=== PATIENT | male | born 1970 | race African-American/Black ===

== ENCOUNTER 2016-11-08 17:50 | Emergency (ER) | payer OTHER ==
[2016-11-08 17:58] VITALS: BP 118/87
[2016-11-08] MEDS ORDERED: IMOVAX RABIES VACCINE IM ONE (18:04)
[2016-11-08] MEDS ORDERED: HYPERRAB S-D VIAL IM ONE (18:04)
[2016-11-08] MEDS ORDERED: NORCO-10 PO ONE (18:05)
--- NOTE | 2016-11-08 18:05 | PROVIDER DOCUMENTATION ---
HPI-Rash/Wound/ReCheck - General Source: patient - History of Present Illness-Dermatology Location: reports: hands (L hand, first hand space) Quality: reports: painful Severity: reports: mild Onset/Duration: reports: just prior to arrival Context/Associated Symptoms: reports: incised wound (1 puncture wound in the first web space of L hand), tender area, other (Dog bite). denies: insect bite/ sting, tick bite, spider bite, unknown bite/sting, abscess, laceration, abrasion , stab wound, blisters, lesion, numbness, pallor, rash, tingling Locality of Occurance: Home <Pedro Carmona - Last Filed: 11/08/16 18:21> - General Source: patient <Rose Barba - Last Filed: 11/08/16 18:46> - General Chief Complaint: Animal Bite Stated Complaint: DOG BITE Time Seen by Provider: 11/08/16 18:01 Allergies/Adverse Reactions: Allergies Allergy/AdvReac Type Severity Reaction Status Date / Time No Known Allergies Allergy Unverified 06/06/16 09:26 Home Medications: Home Medication List Medication Instructions Recorded Confirmed Last Taken Type Cephalexin [Keflex] 500 mg PO 4XDAY #40 capsule 06/06/16 Unknown Rx Amoxicillin/Pot Clavulanate 875 mg PO Q12HR #14 tablet 11/08/16 Unknown Rx [Augmentin] Mupirocin Ointment [Bactroban 1 applicatn TOP TID #1 tube 11/08/16 Unknown Rx Ointment] - History of Present Illness-Dermatology Nature of Presenting Problem: Pt is a 46 yom who presents to ER 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 Pt does not know when his last tetanus shot was or when the dog was last vaccinated , and pt specifically requested the rabies vaccine series. (Pedro Carmona) Review of Systems - Adult - REVIEW OF SYSTEMS - ADULT Constitutional: denies: chills, fever, fatique, night sweats Eyes: reports: no symptoms reported Ears, Nose, Mouth & Throat: reports: no symptoms reported Cardiovascular: reports: no symptoms reported Respiratory: reports: no symptoms reported Gastrointestinal: reports: no symptoms reported Genitourinary: reports: no symptoms reported Musculoskeletal: reports: muscle aches, muscle weakness. denies: bone pain, back pain, frequent leg cramps, joint pain, joint swelling, neck pain Integumentary: reports: skin sores/ulcer (1 puncture wound on first web space of L hand). denies: hives, hair loss, itching, mole changes, nail changes, rash , skin thickening Neurological: reports: no symptoms reported Psychiatric: reports: no symptoms reported Endocrine: denies: change in skin pigment, excessive sweating, increased hunger , increased thirst, polyuria Hematologic/Lymphatic: reports: no symptoms reported Allergic/Immunologic: reports: no symptoms reported All Other Systems: Reviewed and Negative <Pedro Carmona - Last Filed: 11/08/16 18:21> Past History - Adult - PAST MEDICAL HISTORY-ADULT Review of Records: reports: Nursing Assessment Review, Medications Reviewed - IMMUNIZATION STATUS Childhood Immunizations: See Nurse Assessment Flu Vaccine: See Nurse Assessment <Pedro Carmona - Last Filed: 11/08/16 18:21> - PAST MEDICAL HISTORY-ADULT Major Childhood Illnesses: reports: denies history - PRIOR SURGERIES/PROCEDURES Surgical/Procedure History: reports: hernia repair - IMMUNIZATION STATUS Childhood Immunizations: See Nurse Assessment Flu Vaccine: See Nurse Assessment <Rose Barba - Last Filed: 11/08/16 18:46> Physical Exam-General - PHYSICAL EXAM-ADULT Initial Vital Signs Reviewed: Yes - CONSTITUTIONAL General Appearance: appears well, alert, mild distress. negative: obtunded, combative - CARDIOVASCULAR Cardiovascular: normal peripheral pulses, regular rate, rhythm. negative: bradycardia, tachycardia, irregularly irregular - LYMPHATIC Lymphatic: no adenopathy. negative: axilla node tender, cervical node tenderness, inguinal node tender - MUSCULOSKELETAL Extremity: normal range of motion, normal gait, erythema, tenderness. negative : non-tender - SKIN Integumentary: normal color, normal turgor, warm/dry, other (1 puncture wound on first web space of L hand) - NEUROLOGIC Neurologic: grossly normal, no motor/sensory deficits - PSYCHIATRIC Psych/Mental Status: normal mood/affect, normal thought content, normal thought process, oriented x 3 <Pedro Carmona - Last Filed: 11/08/16 18:21> Progress <Pedro Carmona - Last Filed: 11/08/16 18:21> <Rose Barba - Last Filed: 11/08/16 18:46> - PLAN OF CARE/RESULTS Progress/Plan/Lab Results: Vital Signs - 24 hr 11/08/16 17:53 Temperature 98.7 F Pulse Rate 71 Respiratory 18 Rate Blood Pressure 118/87 O2 Sat by Pulse 100 Oximetry Orders Category Date Time Status Hydrocodone/APAP 10 mg/325 mg [Cameron-10] Med 11/08/16 18:05 Discontinued 1 each PO NOW ONE Rabies Immune Globulin [Hyperrab S-D Vial] Med 11/08/16 18:04 Discontinued 1,640 unit IM .ONCE ONE Rabies Vacc, Human Diploid/Pf [Imovax Rabies Vaccine] Med 11/08/16 18:04 Discontinued 2.5 unit IM .ONCE ONE (Pedro Carmona) Departure <Pedro Carmona - Last Filed: 11/08/16 18:21> - Departure Time of Disposition Order: 18:43 Certified Medical Emergency: Emergent <Rose Barba - Last Filed: 11/08/16 18:46> - Departure DIAGNOSIS: Dog bite Qualifiers: Encounter type: initial encounter Qualified Code(s): W54.0XXA - Bitten by dog, initial encounter Disposition: HOME 01 Condition: Stable Additional Instructions: Return for the following days for Vaccinations: Day 3: Day 7: November 15 Day 14: November 12 Day 21: November 29 ED Follow Up Instructions: You have been treated by a care provider in the Emergency Department. These instructions are being provided to you so you can have an understanding of how to care for yourself upon discharge. Upon discharge from the Emergency Department, you are responsible for making arrangements for follow-up care by a physician of your choice. Take all prescribed medications as directed. Return to the Emergency Department immediately for any new or worsening symptoms. You may call the Physician Referral phone number at [phone] to obtain a list of Physicians who are taking new patients. Prescriptions: Amoxicillin/Pot Clavulanate [Augmentin] 875 mg PO Q12HR #14 tablet Mupirocin Ointment [Bactroban Ointment] 1 applicatn TOP TID #1 tube Attestation - Scribe Verification/Attestation Scribe:: Pedro Carmona Acting as Scribe for:: Rose Barba Scribe documention review:: This chart was documented by a scribe and accurately reflects the service the provider performed and the decisions made by the provider. <Pedro Carmona - Last Filed: 11/08/16 18:21> Physician Attestation
[2016-11-08] MEDS ORDERED: DIPHTHERIA/TETANUS ADULT IM ONE (18:42)
== END 2016-11-08 20:21 | disposition home or self-care (01) ==
LOC: ED 17:50
DX: M79.642 Pain in left hand (principal); S61.432A Puncture wound without foreign body of left hand, initial encounter; L53.9 Erythematous condition, unspecified; Z23 Encounter for immunization; W54.0XXA Bitten by dog, initial encounter
CPT/HCPCS: 90375; 90675; 90714